=== PATIENT | female | born 1980 | race Caucasian/White ===

== ENCOUNTER 2018-03-31 12:33 | Inpatient (IN) | payer OTHER ==
[~2018-03-31] VITALS: Ht 167.6 cm; Wt 73.9 kg
[2018-03-31] MEDS ORDERED: PRENATAL 19 TA1 EACH PO (16:44)
== END 2018-04-02 09:23 | DRG 782 ==
LOC: LDR 12:33 → OB/GYN 12:33 → SURG-SUITE 04-01 12:25
PROVIDERS: Obstetrics & Gynecology
PROC: 4A1HXCZ Monitoring of Products of Conception, Cardiac Rate, External Approach (ICD-10-PCS; 2018-03-31)
PROC: 0UVC7ZZ Restriction of Cervix, Via Natural or Artificial Opening (ICD-10-PCS; principal; 2018-03-31 17:00)
DX: O34.32 Maternal care for cervical incompetence, second trimester (principal); O30.092 Twin pregnancy, unable to determine number of placenta and number of amniotic sacs, second trimester; Z3A.20 20 weeks gestation of pregnancy

== ENCOUNTER 2018-04-14 12:08 | Outpatient (CLI) | payer OTHER ==
[~2018-04-14 12:08] MED LIST: PRENATAL 19 TA1 EACH PO
== END 2018-04-14 13:09 | disposition home or self-care (01) ==
LOC: NST 12:08
DX: O30.002 Twin pregnancy, unspecified number of placenta and unspecified number of amniotic sacs, second trimester (principal); Z34.82 Encounter for supervision of other normal pregnancy, second trimester

== ENCOUNTER 2018-04-21 11:02 | Outpatient (CLI) | payer OTHER ==
[2018-04-21] MEDS ORDERED: NIFE60TA3 PO (17:30)
[2018-04-21] MEDS ORDERED: PROGESTERONE200 MG VAG (17:31)
== END 2018-04-21 12:27 | disposition home or self-care (01) ==
LOC: NST 11:02
DX: O30.002 Twin pregnancy, unspecified number of placenta and unspecified number of amniotic sacs, second trimester (principal); Z34.82 Encounter for supervision of other normal pregnancy, second trimester

== ENCOUNTER 2018-04-21 15:14 | Inpatient (IN) | payer OTHER ==
[~2018-04-21] VITALS: Ht 167.6 cm; Wt 74.8 kg
[2018-04-21] MEDS ORDERED: NIFE60TA3 PO (17:30)
[2018-04-21] MEDS ORDERED: PROGESTERONE200 MG VAG (17:31)
== END 2018-05-07 08:20 | disposition home or self-care (01) | DRG 780 ==
LOC: LDR 15:14 → OB/GYN 15:14
PROC: 4A1HXCZ Monitoring of Products of Conception, Cardiac Rate, External Approach (ICD-10-PCS; 2018-04-21)
PROC: BY4DZZZ Ultrasonography of Second Trimester, Multiple Gestation (ICD-10-PCS; principal; 2018-04-23)
DX: O47.02 False labor before 37 completed weeks of gestation, second trimester (principal); O34.32 Maternal care for cervical incompetence, second trimester; O30.022 Conjoined twin pregnancy, second trimester; O09.523 Supervision of elderly multigravida, third trimester

== ENCOUNTER 2018-05-11 11:47 | Inpatient (IN) | payer OTHER ==
[~2018-05-11] VITALS: Ht 167.6 cm; Wt 73.5 kg
[~2018-05-11 11:47] MED LIST changes: +NIFE60TA3 PO; +PROGESTERONE200 MG VAG
== END 2018-05-26 12:15 | disposition home or self-care (01) | DRG 780 ==
LOC: OB/GYN 11:47 → SURG-SUITE 12:01
PROC: 4A1HXCZ Monitoring of Products of Conception, Cardiac Rate, External Approach (ICD-10-PCS; 2018-05-11)
PROC: BY4DZZZ Ultrasonography of Second Trimester, Multiple Gestation (ICD-10-PCS; principal; 2018-05-13)
DX: O47.02 False labor before 37 completed weeks of gestation, second trimester (principal); O34.32 Maternal care for cervical incompetence, second trimester; O30.042 Twin pregnancy, dichorionic/diamniotic, second trimester; O09.522 Supervision of elderly multigravida, second trimester

== ENCOUNTER 2018-06-02 10:28 | Inpatient (IN) | payer OTHER ==
[~2018-06-02] VITALS: Ht 165.1 cm; Wt 1.4 kg
== END 2018-06-07 09:47 | disposition home or self-care (01) | DRG 765 ==
LOC: OB/GYN 10:28
PROVIDERS: Obstetrics & Gynecology Maternal & Fetal Medicine
PROC: 4A033R1 Measurement of Arterial Saturation, Peripheral, Percutaneous Approach (ICD-10-PCS; 2018-06-04)
PROC: 4A1HXCZ Monitoring of Products of Conception, Cardiac Rate, External Approach (ICD-10-PCS; 2018-06-04)
PROC: 10D00Z1 Extraction of Products of Conception, Low, Open Approach (ICD-10-PCS; principal; 2018-06-04 21:00)
DX: O42.013 Preterm premature rupture of membranes, onset of labor within 24 hours of rupture, third trimester (principal); O30.043 Twin pregnancy, dichorionic/diamniotic, third trimester; O64.8XX2 Obstructed labor due to other malposition and malpresentation, fetus 2; Z3A.30 30 weeks gestation of pregnancy; Z37.2 Twins, both liveborn